=== PATIENT | female | born 1960 | race Caucasian/White ===

== ENCOUNTER 2018-09-15 19:38 | Inpatient (IN) | payer OTHER ==
[~2018-09-15] VITALS: Ht 167.6 cm; Wt 68.0 kg
[2018-09-15 21:25] VITALS: BP 114/92
[2018-09-15] MEDS ORDERED: AMITRIPTYLINE100 MG PO (22:14)
[2018-09-15] MEDS ORDERED: ASPIRIN81 M2 PO (22:15)
[2018-09-15] MEDS ORDERED: AMLODIPINE BESY10 MG PO (22:15)
[2018-09-15] MEDS ORDERED: ATORVASTATIN CA40 MG PO (22:16)
[2018-09-15] MEDS ORDERED: BUPROPION HCL100 MG PO (22:17)
[2018-09-15] MEDS ORDERED: CETIRIZINE HCL5 MG PO (22:18)
[2018-09-15] MEDS ORDERED: PLAVIX 75 MG TA75 M1 PO (22:18)
[2018-09-15] MEDS ORDERED: VALIUM5 MG PO (22:19)
[2018-09-15] MEDS ORDERED: CYMBALTA60 MG PO (22:21)
[2018-09-15] MEDS ORDERED: FLONASE 0.05%50 MCG NASAL (22:21)
[2018-09-15] MEDS ORDERED: NEURONTIN 300300 M1 PO (22:22)
[2018-09-15] MEDS ORDERED: DILAUDID 2 MG TA2 MG PO (22:23)
[2018-09-15] MEDS ORDERED: COZAAR 25 MG TA25 M1 PO (22:24)
[2018-09-15] MEDS ORDERED: METFORMIN HCL500 MG PO (22:25)
[2018-09-15] MEDS ORDERED: MELATONIN1 MG PO (22:25)
[2018-09-15] MEDS ORDERED: PROTONIX40 M1 PO (22:26)
[2018-09-15] MEDS ORDERED: LOPRESSOR50 PO (22:26)
[2018-09-15] MEDS ORDERED: RANEXA500 MG PO (22:27)
[2018-09-15] MEDS ORDERED: REXULTI2 MG PO (22:28)
[2018-09-15] MEDS ORDERED: SYSTANE ULTRA 010 ML OPHTHALMIC (22:29)
[2018-09-15] MEDS ORDERED: COLACE100 MG PO (22:36)
[2018-09-15] MEDS ORDERED: SENOKOT8.6 MG PO (22:37)
[2018-09-16] VITALS (12 sets, daily range): BP systolic 96–137; BP diastolic 58–98
[2018-09-16 01:49] LABS: HEMATOCRIT 32.8 % (37.0-47.0); HEMOGLOBIN 11.2 gm/dL (12.0-15.0); MCH 30.5 pg (26.0-34.0); MCHC 34.1 g/dL (28.0-37.0); MCV 89.6 fL (80.0-100.0); RBC 3.66 mil/uL (4.20-5.00); RDW 13.4 % (10.5-14.5); WBC 5.8 thou/uL (4.0-11.0)
[2018-09-16 02:08] LABS: ANION GAP 9 mmol/L (7-16); BUN 14 mg/dL (7-18); CALCIUM 9.3 mg/dL (8.5-10.1); CHLORIDE 100 mmol/L (98-107); CHOLESTEROL 165 mg/dL (<200); CO2 28 mmol/L (21-32); GLUCOSE 120 mg/dL (74-106); HDL CHOLESTEROL 65 mg/dL (>40); LDL CHOLESTEROL 40 mg/dL (<100); POTASSIUM 4.5 mmol/L (3.5-5.1); SERUM ASSESSMENT Slight Lipemia; SODIUM 137 mmol/L (136-145); TC:HDL 2.5 Ratio (Not establshd); TRIGLYCERIDE 302 mg/dL (<150); TROPONIN-I <0.06 ng/mL (<0.06); VLDL 60 mg/dL (<40)
--- NOTE | 2018-09-16 06:21 | NUR ---
PT ARRIVED FROM [facility] AROUND 2120PM. VSS. PT A&0X4. ADMISSION ASSESSMENTS AND TELE STRIP DONE. NEFTALY RUIZ NOTIFIED FOR NEW ORDERS. PT COMPLAINED OF CHEST PAIN OF 8/10 AROUND 0200AM THIS MORNING. STAT EKG AND TROPONIN DONE AND THEY WERE NEGATIVE. FENTANYL AND NITROGLYCERIN ALSO ADMINISTERED. PT STATED THAT FENTANYL RELEIVED HER PAIN AFTER IT WAS ADMINISTERED. PT SLEPT WELL AFTER THAT, WILL CONTINUE OT MONITOR PER POC.
--- NOTE | 2018-09-16 08:14 | NUR ---
PT OFF UNIT FOR CARDIAC CATH. NO S/S OF DISTRESS THIS AM. PRETREATED FOR CONTRAST ALLERGY PER DR UGALDE ORDERS. VSS.
--- NOTE | 2018-09-16 08:39 | EKG ---
[address] [place] [address] ELECTROCARDIOGRAM REPORT Name: NGOZI LANTIGUARASHAD Muir Room #: 212- ADM IN M.R.#: [id number] Admission: 09/15/18 Attend Phys: All Dawn MD Discharge: Date of : 58 Report #: [id number] THIS REPORT FOR: //name// [facility] Test Date: 2018-09-16 Test Time: 02:13:04 Pat Name: KAREN LANTIGUA Department: Room: 212 Gender: F Securities Attorney: JUAN : 1960 Requested By: Taina Jasmine Order Number: [id number] MD: Grant Paniagua Measurements Intervals [place] Rate: 82 P: 64 ID: 187 QRS: 40 QRSD: 106 T: 14 QT: 400 QTc: 468 Interpretive Statements Sinus rhythm No significant abnormality No previous ECG available for comparison Electronically Signed On 09-16-2018 8:38:48 BLACKSMITH HAMMER OPERATOR by Grant Paniagua [email or web address] <ELECTRONICALLY SIGNED> By: Grant Paniagua MD, [facility] 09/16/18 0838 0213 0213 Grant Paniagua MD, FACC /EPI
--- NOTE | 2018-09-16 08:41 | EKG ---
[address] [place] [address] ELECTROCARDIOGRAM REPORT Name: NGOZI LANTIGUAELLA Wood Room #: 212- ADM IN M.R.#: [id number] Admission: 09/15/18 Attend Phys: All Dawn MD Discharge: Date of : 58 Report #: [id number] THIS REPORT FOR: //name// [facility] Test Date: 2018-09-16 Test Time: 06:52:30 Pat Name: KAREN LANTIGUA Department: Room: 212 Gender: F Ict Support Technicians: ALY : 1960 Requested By: Taina Jasmine Order Number: [id number] MD: Grant Paniagua Measurements Intervals [place] Rate: 82 P: 64 W[place]: 190 QRS: 42 QRSD: 111 T: -2 QT: 388 QTc: 453 Interpretive Statements Sinus rhythm No significant abnormality No previous ECG available for comparison Electronically Signed On 09-16-2018 8:41:15 PASTA PRESS OPERATOR by Grant Paniagua [email or web address] <ELECTRONICALLY SIGNED> By: Grant Paniagua MD, [facility] 09/16/18 [phone] 0652 Grant Paniagua MD, FACC /EPI
--- NOTE | 2018-09-16 08:42 | EKG ---
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
--- NOTE | 2018-09-16 10:43 | NUR ---
PT RETURNED FROM [facility]. WILL FOLLOW POST CATH PROTOCOLS.
--- NOTE | 2018-09-16 12:29 | CATHLAB ---
[address] [place] [address] INVASIVE PROCEDURE REPORT Name: RHINAKAREN E Room #: 212-P [facility]#: [id number] Admission: 09/15/18 Attend Phys: All Dawn MD Discharge: Date of : 58 Date of Service: 09/16/18 1229 Report #: [id number] THIS REPORT FOR: //name// APPROVED REPORT Study performed: 09/16/2018 09:25:43 Patient Details Patient Status: In-Patient Room #: The patient is a 58 year-old female Event Personnel Grant Paniagua Time Stamp Assembler, Ari Waldron RN RN, Hernan Mendez Mahmood, Amber Monitor Procedures Performed Art Access - R femoral artery* 60111 Initial Mod Sed Same Phys/QHP Gr5y [id number] 71690 Mod Sed Same Phys/QHP Ea [id number] Left Heart Cath w/or w/o Coronaries [id number] [facility] Hemostasis w/ Mynx Indication Chest pain Procedure Narrative The patient was brought urgently to the Cardiac Catheterization Laboratory and was prepped and draped in a sterile manner. The Right Groin^ was infiltrated with 1% Lidocaine subcutaneous anesthesia. A PINNACLE 6FR Sheath #[id number] sheath was inserted into the RFA^. Coronary angiography was performed using coronary diagnostic catheters. The right coronary system was accessed and visualized with a JR 4 catheter. The left coronary system was accessed and visualized with a JL 4 catheter. The left ventricle was accessed and visualized with a Pigtail catheter. Left ventricular/Aortic Valve gradient assessed via catheter pullback. Left ventriculogram was performed in DEXTER projection. Closure device was deployed with a 6 Fr Mynx. The patient tolerated the procedure well and there were no complications associated with the procedure. There was no hematoma. Intraoperative Conscious Sedation Sedation start time: 09:37 Case end Time: 09:54 Fentanyl 12.5 mcg Versed 1 mg Fluoro Time: 1.50 minutes Dose: DAP 1903.00 cGycm2 233 mGy [address] [place] [address] INVASIVE PROCEDURE REPORT Name: KAREN LANTIGUA Room #: 212-P [facility]#: [id number] Admission: 09/15/18 Attend Phys: All Dawn MD Discharge: Date of : 58 Date of Service: 09/16/18 1229 Report #: [id number] Contrast Type and Amount: Visipaque 100 ml Coronary Angiography The patient's coronary anatomy is right dominant. Diagnostic Cath Left Main Normal left main LAD Mild 20-30% proximal to mid LAD plaquing. 40-50% mid LAD just after the second diagonal branch Diagonal 1 Angiographically normal, large first diagonal branch Diagonal 2 There was a previously placed mid LAD stent extending into a large second diagonal branch. No restenosis. Circumflex Moderate size circumflex comprised of 2 marginal branches Mild 20-30% proximal circumflex plaquing OM1 Relatively small and angiographically normal OM2 Larger second diagonal branch, bifurcating. Angiographically normal Right Coronary The right coronary was large and dominant. Mild 10-20% proximal and mid vessel plaquing. R PDA Large posterior descending branch, angiographically normal RPLV Previously stented proximal posterolateral branch. No restenosis. Mild plaquing Left Ventriculography The left ventricle is normal in size with normal contractility. The left ventricular ejection fraction is estimated to be 60-65%. Left ventricular wall motion abnormalities are not present. There is no mitral insufficiency. Hemodynamics The aortic pressure is 164/73 mmHg with a mean of 114 mmHg. The left ventricular pressure is 151/3 mmHg with a mean of mmHg. The left ventricular end diastolic pressure is 33 mmHg. Conclusion 1. Normal global and regional left ventricular systolic function. EF 65% 2. Left main normal 3. Mild to moderate scattered plaquing. Previously placed LAD, circumflex, and posterolateral branch stents widely patent [address] [place] [address] INVASIVE PROCEDURE REPORT Name: KAREN LANTIGUA Room #: 212-P [facility] IN ..#: [id number] Admission: 09/15/18 Attend Phys: All Dawn MD Discharge: Date of : 58 Date of Service: 09/16/18 1229 Report #: [id number] Recommendations Aggressive Medical Therapy <ELECTRONICALLY SIGNED> By: Grant Paniagua MD, FACC 09/16/189 28 Grant Paniagua MD, FACC /INF
[2018-09-16] MEDS ORDERED: RANEXA500 MG PO (14:21)
--- NOTE | 2018-09-16 16:29 | NUR ---
PT DISCHARGED HOME TO SELF CARE THIS SHIFT. ALERT AND ORIENTED X4. DENIES SOA AND ONLY C/O CHRONIC PAIN POST CATH. VSS. RIGHT GROIN POST CATH SITE C/D/I. NO INTERVENTION PERFORMED DURING CATH. POST CATH PROTOCOL COMPLETED PRIOR TO DISMISSAL. FAMILY FRIEND PRESENT TO TRANSPORT PT HOME. IV OUT, TELE BOX OFF. PT DENIES QUESTIONS OR CONCERNS REGARDING DISCHARGE MEDS, F/U APPTS, VS, POST CATH SITE CARE OR INSTRUCTIONS, DIET, ACTIVITY LEVEL OR POST HOSPITAL CARE.
[2018-09-16 19:07] LABS: GLYCOHEMOGLOBIN (HGB A1C) 5.7 % (4.8-5.6)
--- NOTE | 2018-09-17 08:34 | HC ---
[facility] [place] [address] CONSULTATION Name: KAREN LANTIGUA Wood Room #: 212-P [facility].#: [id number] Admission: 09/15/18 Attend Phys: All Dawn MD Discharge: 09/16/18 Date of : 58 Report #: [id number] THIS REPORT FOR: //name// CC: Bj RIVAS physician/PCP All Dawn REASON FOR CONSULTATION: Chest pain. HISTORY OF PRESENT ILLNESS: The patient is a 58-year-old woman with a complicated history including hypertension, diabetes, dyslipidemia and coronary artery disease with prior stenting in 2009. She had ST segment elevation myocardial infarction and underwent stenting of the distal right coronary. This was followed by stenting in 2010 of the posterolateral branch and stenting in 2016 of the circumflex. She was driving yesterday and developed midsternal chest pain with diaphoresis. Pain radiated to her jaw and into her back. She took three sequential nitroglycerin tablets and 4 baby aspirins with some improvement, although not complete relief. She was seen in the Emergency Department at [facility] where cardiac enzymes were normal. EKG demonstrated no acute ST or T-wave changes. She has had intermittent ongoing pain since yesterday. She reports that this pain is reminiscent to what she had prior to her stenting procedure. She denies heart failure symptoms including orthopnea, paroxysmal nocturnal dyspnea or lower extremity edema. No history of palpitations, near syncope or syncope. ALLERGIES: SHE IS ALLERGIC TO REGLAN, COMPAZINE AND CONTRAST. MEDICINES: Include amitriptyline 100 mg daily, amlodipine 10 mg daily, aspirin, atorvastatin 40 mg daily, Plavix 75 mg daily, Valium, Cymbalta 60 mg twice daily, losartan 50 mg daily, metformin 500 mg twice daily, Toprol 50 mg twice daily, Protonix 40 mg twice daily and Ranexa 500 mg twice daily. PAST HISTORY: Past history and medical records have been reviewed and include a history of prior stenting procedures, hypertension, dyslipidemia, sleep apnea, fibromyalgia, hysterectomy, appendectomy, cholecystectomy, thoracotomy for correction of T7-T8 herniated disk and diabetes. SOCIAL HISTORY: She is a nonsmoker. 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 FAMILY HISTORY: Notable for mother with premature coronary disease. REVIEW OF SYSTEMS: All systems negative except as that noted above. PHYSICAL EXAMINATION: GENERAL: Reveals a pleasant woman in no distress. VITAL SIGNS: Blood pressure is 112/65, heart rate is 73 and regular, respirations unlabored at [address]. [address] [address] CONSULTATION Name: KAREN LANTIGUA Room #: 212-P [facility]#: [id number] Admission: 09/15/18 Attend Phys: All Dawn MD Discharge: 09/16/18 Date of : 58 Report #: [id number] HEENT: There are neither xanthelasma, subcutaneous xanthomata, oral mucosal or digital cyanosis or kyphoscoliosis present. CHEST: Clear to auscultation and percussion. CARDIAC: Regular rate and rhythm with normal S1 and S2. No murmurs or rubs. ABDOMEN: Soft and nontender. EXTREMITIES: Without cyanosis, clubbing or edema. Radial pulses are 2+. NEUROLOGIC: She is alert with a nonfocal exam. LABORATORY DATA: EKG: Sinus rhythm, small inferior Q-waves, otherwise normal tracing. Sodium 137, potassium 4.5, creatinine 1.0, glucose 120. LDL 40. White count 5.8, hemoglobin 11, hematocrit 32 and platelet count 275. TSH 2.0. IMPRESSION: 1. Chest pain suspicious for angina. 2. Coronary artery disease with several prior stenting procedures. 3. Dyslipidemia. 4. Hypertension. 5. Diabetes. 6. Family history of premature coronary artery disease. RECOMMENDATIONS: 1. Continued use of beta blockade, aspirin and dual antiplatelet therapy. 2. Coronary angiography. 3. Premedication for iodine allergy. After a thorough discussion of the procedure, its risks and alternatives and after answering her questions, she is agreeable to proceeding. <ELECTRONICALLY SIGNED> By: Grant Paniagua MD, [facility] 09/17/18 0834 0744 0831 Grant Paniagua MD, FAC /nt
== END 2018-09-16 16:24 | disposition home or self-care (01) | DRG 286 ==
LOC: 2N 19:38 → ENTRNSPT 09-16 16:16 → 2N 09-16 16:24
PROVIDERS: Nurse Practitioner Family; ADMIT Hospitalist
PROC: 4A023N7 Measurement of Cardiac Sampling and Pressure, Left Heart, Percutaneous Approach (ICD-10-PCS; principal; 2018-09-15)
PROC: B215YZZ Fluoroscopy of Left Heart using Other Contrast (ICD-10-PCS; principal; 2018-09-15)
PROC: B211YZZ Fluoroscopy of Multiple Coronary Arteries using Other Contrast (ICD-10-PCS; principal; 2018-09-15)
DX: R07.9 Chest pain, unspecified (principal); I50.33 Acute on chronic diastolic (congestive) heart failure; I25.10 Atherosclerotic heart disease of native coronary artery without angina pectoris; I10 Essential (primary) hypertension; E11.9 Type 2 diabetes mellitus without complications; E78.5 Hyperlipidemia, unspecified; K21.9 Gastro-esophageal reflux disease without esophagitis; F41.9 Anxiety disorder, unspecified; G47.33 Obstructive sleep apnea (adult) (pediatric); F32.9 Major depressive disorder, single episode, unspecified; Z95.5 Presence of coronary angioplasty implant and graft; I25.2 Old myocardial infarction; Z88.8 Allergy status to other drugs, medicaments and biological substances; Z91.041 Radiographic dye allergy status; Z90.710 Acquired absence of both cervix and uterus; Z90.49 Acquired absence of other specified parts of digestive tract; Z82.49 Family history of ischemic heart disease and other diseases of the circulatory system; Z85.038 Personal history of other malignant neoplasm of large intestine; Z88.6 Allergy status to analgesic agent; Z91.040 Latex allergy status
CPT/HCPCS: 10081